=== PATIENT | female | born 1965 | race Caucasian/White ===

== ENCOUNTER 2018-09-30 15:15 | Emergency (ER) | payer OTHER ==
[~2018-09-30] VITALS: Ht 165.1 cm; Wt 70.0 kg
[2018-09-30 15:53] VITALS: BP 191/86; PULSE 98; RESP 18; Ht 165.1 cm; Wt 70.0 kg
[2018-09-30] MEDS ORDERED: LIDOCAINE 2%/EPI MPF (SDV) 20 ML VIAL INJ STA (17:44)
[2018-09-30] MEDS ORDERED: DIPHTH/TET/ACEL PERTUSS (ADULT) 0.5 ML VIAL IM* ONE (18:00)
[2018-09-30] MEDS ORDERED: IBUP800T48 PO (18:56)
--- NOTE | 2018-09-30 18:59 | ERD ---
ER Documentation Chief Complaint Chief Complaint FALL WITH LAC ON ANTERIOR HEAD HPI 53-year-old female is here because she was climbing on a little steps bladder and it collapsed and she fell and she hit her head. She thinks she lost consciousness for a couple minutes. She has had no nausea or vomiting. She is ambulatory. She has a laceration to her scalp. Unsure of her last tetanus vaccination. No photosensitivity or visual changes. ROS All systems reviewed and are negative except as per history of present illness. Medications Home Meds Active Scripts Ibuprofen* (Motrin*) 800 Mg Tab, 800 MG PO Q6, #30 TAB Prov:GERI LARSEN PA-C 09/30/18 Allergies Allergies: Coded Allergies: No Known Allergy (Unverified , 09/30/18) PMhx/Soc Hx Alcohol Use: No Hx Substance Use: No Hx Tobacco Use: No Smoking Status: Never smoker FmHx Family History: No diabetes Physical Exam Vitals Vital Signs Date Temp Pulse Resp B/P (MAP) Pulse Ox O2 O2 Flow FiO2 Time Delivery Rate 09/30/18 98.3 98 18 191/86 98 15:53 (121) Physical Exam INITIAL VITAL SIGNS: Reviewed by me GENERAL: Awake, alert and oriented x 4, well appearing, nontoxic, speaking in full sentences. No acute distress HEAD: Mid parietal scalp laceration approximately 4-5 inches in length NECK: Supple. No masses. Full range of motion. No meningismus. No midline tenderness. EYES: EOMI. PERRL. EAR: No tenderness over the mastoids bilaterally. No exudates in the canals. TMs nonerythematous. NOSE: Normal nose. THROAT: No tonilar erythema or edema. No exudates. Uvula midline. No kissing tonsils. RESPIRATORY: Clear to auscultation bilaterally. Symmetric chest wall rise. No wheezing or rales. No accessory muscle use. CV: Regular rate and rhythm. No murmurs, rubs, or gallops. Neuro: M/S: Alert and oriented Face: EOMI, face and pharynx with normal sensation and function Motor: Normal strength throughout Sensation: Normal sensation throughout Speech: Normal Cerebel: Normal coordination Normal gait Normal finger to nose Results 24 hrs Current Medications Medications Dose Sig/Natalio Start Time Status Last (Trade) Ordered Route PRN Stop Time Admin Dose Reason Admin Diphtheria/ 0.5 ml ONCE ONCE 09/30/18 DC 09/30/18 Tetanus/Acell IM* 18:00 17:57 Pertussis 09/30/18 18:01 (Adacel) Lidocaine/ 20 ml ONCE STAT 09/30/18 DC Epinephrine INJ 17:44 (Xylocaine 09/30/18 17:46 2%/ Epi Mpf(Sdv)) Procedures/MDM 53-year-old male is here with head injury. She thinks he may have lost consciousness. CT scan is negative. She was given a tetanus vaccination. The wound was irrigated with normal saline and repaired with 12 cleo. Patient tolerated the procedure well. She should return in 2 days for wound check and 5 days for removal of cleo. Patient counseled regarding my diagnostic impression and care plan. Prior to discharge all questions answered. Pt agrees with treatment plan and understands strict return precautions. Pt is instructed to follow up with primary care provider within 24-48 hours. Precautionary instructions provided including instructions to return to the ER if not improving or for any worsening or changing symptoms or concerns. Departure Diagnosis: Primary Impression: Head injuries Additional Impression: Laceration Condition: Stable Patient Instructions: First Aid: Head Injuries, Laceration, Scalp Additional Instructions: Follow up with your physician to remove the stitches:For Face wounds 5-7 days.For Elsewhere on the body 7-10 days. GERI LARSEN PA-C Sep 30, 2018 18:59
[2018-09-30] MEDS ORDERED: IBUPROFEN 800 MG TAB PO ONE (19:30)
== END 2018-09-30 19:16 | disposition home or self-care (01) ==
LOC: FTE 15:15
DX: S01.01XA Laceration without foreign body of scalp, initial encounter (principal); S09.90XA Unspecified injury of head, initial encounter; W01.198A Fall on same level from slipping, tripping and stumbling with subsequent striking against other object, initial encounter; Y92.9 Unspecified place or not applicable; Z23 Encounter for immunization
CPT/HCPCS: 12005; 70450; 90471; 90715; Z7502; Z7610